=== PATIENT | female | born 1985 | race Caucasian/White ===

== ENCOUNTER 2018-07-31 21:27 | Inpatient (IN) | payer OTHER ==
[~2018-07-31] VITALS: Ht 162.6 cm; Wt 90.7 kg
[2018-07-31 21:42] VITALS: BP 140/90
--- NOTE | 2018-07-31 21:42 | NUR ---
TO BED # 3 AMBULATORY, REPORT GIVEN TO LISBETH CAMARENA
--- NOTE | 2018-07-31 21:50 | NUR ---
PT CAME IN WITH C/O POTENTIAL/NEAR DROWNING X 3 DAYS AGO. PT WAS IN A RACE AND HAD TO SWIM. SHE WENT UNCONCIOUS TO FIND HER SELF WHEN SHE WOKE UP IN THE AMBULANCE. PT WAS ADMITTED FOR OBSERVATION AT A HOSPITAL. PT O2 SAT. IS BETWEEN 88 AND 95 PERCENT ON RA. NO PAIN AT THIS TIME. A/O X 4. PT HAS SOME SLIGHT WHEEZING TO RIGHT LUNG. NO COUGHING AT THIS TIME. KNA. NO PRIOR MEDICAL HX.SKIN IS PINK/WARM/DRY;; PATIENT STATES PAIN OF 0/10 AT THIS TIME; VSS; PATIENT POSITIONED FOR COMFORT; HOB ELEVATED; BEDRAILS UP X2; BED DOWN. ER MD MADE AWARE OF PT STATUS.
[2018-07-31 22:40] LABS: BASOPHILS % (AUTO) 0.2 % (0.0-2.0); EOSINOPHILS % (AUTO) 0.1 % (0.0-4.0); HEMOGLOBIN 14.6 g/dL (12.0-16.0); LYMPHOCYTES # (AUTO) 0.7 K/uL (2.5-16.5); MEAN CORPUSCULAR HEMOGLOBIN 31 pg (27-31); MEAN CORPUSCULAR HGB CONC 35 g/dL (33-37); MEAN CORPUSCULAR VOLUME 88.4 fL (80-94); MONOCYTES # (AUTO) 0.6 K/uL (0.8-1.0); MONOCYTES % (AUTO) 4.2 % (1.7-9.3); NEUTROPHILS # (AUTO) 12.2 K/uL (1.8-7.7); NEUTROPHILS % (AUTO) 90.3 % (42.2-75.2); PLATELET COUNT (AUTO) 279 K/uL (140-450); RED BLOOD CELL COUNT(AUTO) 4.75 MIL/uL (4.20-5.40); RED CELL DISTRIBUTION WIDTH 12.6 % (11.6-13.7); WHITE BLOOD COUNT (AUTO) 13.5 K/uL (4.8-10.8)
[2018-07-31 22:54] LABS: LYMPHOCYTES % (AUTO) 5.2 % (20.5-51.1)
[2018-07-31 23:08] LABS: ALBUMIN 2.9 g/dL (3.4-5.0); ANION GAP 18.1 (8-16); CARBON DIOXIDE 16.8 mmol/L (21-32); POTASSIUM 3.9 mmol/L (3.5-5.1); TOTAL BILIRUBIN 0.5 mg/dL (0.0-1.0)
[2018-07-31 23:10] LABS: CREATININE 4.8 mg/dL (0.6-1.3)
[2018-07-31] MEDS ORDERED: NACL 0.9% 1,000 ML IV ONE (23:10)
--- NOTE | 2018-07-31 23:12 | NUR ---
PT RESTING IN BED, COMFORT MEASURES OFFERED. PT TOLERATED WELL.
[2018-08-01] MEDS ORDERED: ONDANSETRON 4 MG/2 ML VIAL IVP PRN (00:25)
[2018-08-01] MEDS ORDERED: ACETAMINOPHEN 325 MG TAB PO PRN (00:25)
[2018-08-01] MEDS ORDERED: ALBUTEROL 0.083% 2.5 MG/3 ML NEBU INH PRN (00:25)
--- NOTE | 2018-08-01 00:32 | NUR ---
pt resting in bed, vitals stable. wating for transfer to the floor
--- NOTE | 2018-08-01 00:52 | NUR ---
Pt report given to jessica richey. Transfer of care at this time.vitals stable
--- NOTE | 2018-08-01 00:52 | NUR ---
Patient will be admitted to care of dr. silverman. Admited to telemetry. Will go to room 105 B. Belongings list completed. Report to AILEEN CAMARENA. VITALS STABLE.
[2018-08-01 01:00] VITALS: BP 149/103
--- NOTE | 2018-08-01 01:00 | NUR ---
RECEIVED PT FROM ER NURSE JONATHAN. ARRIVED VIA GURNEY, PT AMBULATED TO BED. AOX4, ON 2L/NC - O2SAT 92%. RIGHT HAND #20G. SKIN IS INTACT AND NORMAL FOR ETHNICITY. ORIENTED PT TO BEDROOM, RESTROOM, BED, AND CALL LIGHT. DISCUSSED PLAN OF CARE AND PT VERBALIZED UNDERSTANDING. NO S/S OF RESPIRATORY DISTRESS OR DISCOMFORT NOTED AT THIS TIME. MRSA SWAB COLLECTED. VITAL SIGNS TAKEN AND ELEVATED BP NOTED WELL TACHYCARDIC. PT TOLERATED WELL AND IN NO SIGNS OF DISTRESS. PT ALSO HAS A COUGH- INTERMITTENT. BED IN LOWEST POSITION, BED BREAKS ON, BOTH SIDE RAILS UP. BED SIDE TABLE AND CALL LIGHT ARE WITHIN REACH.
[2018-08-01] MEDS: NACL 0.9% 1,000 ML IV SCH ×2 (01:52→14:01)
--- NOTE | 2018-08-01 01:52 | NUR ---
IVF HUNG AND TOLERATING WELL. PT STATED THAT SHE BECAME NAUSEOUS WITH IVF IN ER AND TO GIVE EMESIS BAGS- GIVEN FOR COMFORT. REMINDED PT THAT THERE ARE ANTIEMETICS AVAILABLE TO HER AND TO LET ME KNOW IF SHE WOULD LIKE TO BE MEDICATED. NO S/S OF RESPIRATORY DISTRESS OR DISCOMFORT NOTED AT THIS TIME. WILL CONTINUE TO MONITOR.
[2018-08-01 04:00] VITALS: BP 120/78
--- NOTE | 2018-08-01 04:00 | NUR ---
VITAL SIGNS TAKEN AND TOLERATED WELL. NO S/S OF RESPIRATORY DISTRESS OR DISCOMFORT NOTED AT THIS TIME. WILL CONTINUE TO MONITOR.
--- NOTE | 2018-08-01 06:00 | NUR ---
PT CONTINUES TO SLEEP. NO S/S OF RESPIRATORY DISTRESS OR DISCOMFORT NOTED AT THIS TIME. WILL CONTINUE TO MONITOR.
--- NOTE | 2018-08-01 07:24 | NUR ---
ENDORSED PT CARE TO DAY SHIFT NURSE SITAL-RN FOR CONTINUITY OF CARE.
[2018-08-01 08:00] VITALS: BP 128/86
[2018-08-01 08:08] LABS: BASOPHILS % (AUTO) 0.1 % (0.0-2.0); HEMATOCRIT 40.5 % (36-48); HEMOGLOBIN 13.8 g/dL (12.0-16.0); LYMPHOCYTES # (AUTO) 0.8 K/uL (2.5-16.5); LYMPHOCYTES % (AUTO) 6.8 % (20.5-51.1); MEAN CORPUSCULAR HEMOGLOBIN 31 pg (27-31); MEAN CORPUSCULAR HGB CONC 34 g/dL (33-37); MONOCYTES # (AUTO) 0.8 K/uL (0.8-1.0); MONOCYTES % (AUTO) 6.6 % (1.7-9.3); NEUTROPHILS % (AUTO) 86.5 % (42.2-75.2); PLATELET COUNT (AUTO) 280 K/uL (140-450); RED CELL DISTRIBUTION WIDTH 12.8 % (11.6-13.7); WHITE BLOOD COUNT (AUTO) 11.6 K/uL (4.8-10.8)
--- NOTE | 2018-08-01 08:15 | NUR ---
RADIOLOGY CALLED , PT DUE FOR TWO SIDE X-RAY. INOFRMED PT. KEPT HER ON HEPLOCK, PT STATES SHE FEELS COMFORTABLE FOR BREATHING RT NOW. NO DISTRESS NOTED. WILL CONTINUE TO MONITOR PT.
--- NOTE | 2018-08-01 08:50 | NUR ---
PT BACK FORM X-RAY. SITTING ON HER BED. NO SIGN OF DISTRESS. WILL CONTINUE TO MONITOR PT.
--- NOTE | 2018-08-01 09:02 | NUR ---
PATIENT HAS BEEN SCREENED AND CATEGORIZED MODERATE NUTRITION RISK. PATIENT WILL BE SEEN WITHIN 3-5 DAYS OF ADMISSION. 08/03/18 08/05/[address]
--- NOTE | 2018-08-01 09:10 | NUR ---
CALLED PTS PCP AT [facility] FOR RECENT LAB VALUES PER DR BRNUO. NO CAMILA RECEIVED BY OFFICE. WILL TRY AGAIN LATER.
[2018-08-01] MEDS: SODIUM BICARBONATE 650 MG TAB PO SCH ×2 (09:16→21:06)
[2018-08-01 09:39] LABS: MAGNESIUM 2.4 mg/dL (1.8-2.4); PHOSPHORUS 4.2 mg/dL (2.5-4.9)
--- NOTE | 2018-08-01 10:45 | NUR ---
PT PCP OFFICE [facility] [phone] CALLED FOR RECEIVING RECENT LAB ORDER PER MD ORDER. FAX NUMBER [phone] GIVEN TO FAX THE LAB REPORTS. WILL WAIT FOR THE FAX TO BE RECEIVED.
[2018-08-01 12:00] VITALS: BP 139/95
--- NOTE | 2018-08-01 12:00 | NUR ---
CHECKED ON PT. NORMAL VS NOTED. PT DENIES ANY RESPIRATORY DISTRESS. PT STILL ON 3LPM O2 VIA NC, SATURATION AT 94. PT STATES TO HAVE BOWEL MOVEMENT, SOFT . NO SIGN OF DISTRESS. DENIES PAIN, AUSCULTATED LUNGS , HAS SOME WHEEZING ON HER RT SIDE LUNG.PTS PCP OFFICE CALLED AGAIN, ASKED ABOUT THE RECENT LAB VALUES, STATES HAS NO RECENT LAB VALUES. HAS ONLY OF MAY 2017. INFORMED PT. WILL CONTINUE TO MONITOR PT.
[2018-08-01 12:48] LABS: BILIRUBIN,URINE NEGATIVE (NEGATIVE); BLOOD, URINE 1+ (NEGATIVE); COLOR,URINE YELLOW (YELLOW); LEUKOCYTE ESTERASE ,URINE 1+ (NEGATIVE); NITRITE, URINE NEGATIVE (NEGATIVE); PH,URINE 5.5 (5.0-9.0); UGLUCOSE NEGATIVE (NEGATIVE)
[2018-08-01 13:00] LABS: RBC,URINE 0-5 (RARE) /HPF (0-5)
[2018-08-01 13:02] LABS: APPEARANCE,URINE SLIGHTLY HAZY (CLEAR)
--- NOTE | 2018-08-01 14:00 | NUR ---
CHECKED ON PT. SITTING ON HER BED. ADMINISTERED IVF TO PT. OFFERED ICE WATER. CALL LIGHT LUCIAN GONZALEZ. NO SIGN OF DISTRESS. WILL CONTINUE TO MONITOR PT.
[2018-08-01 16:00] VITALS: BP 136/105
[2018-08-01] MEDS ORDERED: ALBUTEROL SULFATE/IPRATROPIU 3 ML SOL IH PRN (16:10)
--- NOTE | 2018-08-01 18:30 | NUR ---
CHECKED ON PT. SITTING ON HER BED. NO SIGN OF DISTRESS.STATES IS COMFORTABLE FOR BREATHING. WILL CONTINUE TO MONITOR PT.
--- NOTE | 2018-08-01 19:10 | NUR ---
RECEIVED REPORT FROM JODI RN AT BEDSIDE FOR CONTINUITY OF CARE, PT IN STABLE CONDITION.
--- NOTE | 2018-08-01 19:10 | NUR ---
ENDORSED PT TO PM NURSE AT THE BEDSIDE. PT SITTING ON HER BED. PT IN STABLE CONDITION.
[2018-08-01 20:00] VITALS: BP 151/94
[2018-08-01] MEDS: PIPER/TAZO 2.25GM/D5W PREMIX 50 ML IV SCH (21:08)
[2018-08-01] MEDS: ALBUTEROL SULFATE/IPRATROPIU 3 ML SOL IH SCH (21:10)
[2018-08-01 21:50] LABS: ANION GAP 20.1 (8-16); CARBON DIOXIDE 14.7 mmol/L (21-32); POTASSIUM 3.8 mmol/L (3.5-5.1)
[2018-08-01 21:56] LABS: CREATININE 4.4 mg/dL (0.6-1.3)
--- NOTE | 2018-08-01 21:57 | NUR ---
SERGE FROM LAB CALLED TO REPORT CRITICAL CREATININE LEVEL OF 4.4, WHICH IS TRENDING DOWN FROM 4.8. WILL ALERT PRIMARY MD.
--- NOTE | 2018-08-01 22:00 | NUR ---
PT IN BED NO S/S OF PAIN OR DISTRESS, PT LUNG SOUNDS DIMINISHED AT BASE OF LEFT LUNG. PT ASLO HAS PERIODS OF DRY COUGH. PT GETTING NEBULIZER TREATMENT Q 6HRS. PT IS ALSO ON 3L OF O2 VIA N/C. V/S FOLLOWS T 99.0 P 96 B/P 151/94 R 20 02 94 WITH 3 L OF O2. PT HAS NO C/O OF PAIN OR SOB.
--- NOTE | 2018-08-01 22:30 | NUR ---
PT SLEEPING SOUNDLY NO S/S OF SOB, IV FLUIDS RUNNING N/S AT 75MLS/HR. BED LOW SIDE RAILS UP AND CALL CRUZ IN REACH.
[2018-08-01 22:33] LABS: CKMB RELATIVE INDEX 0.2 (0.0-2.5)
[2018-08-02] VITALS: BP 138/89
--- NOTE | 2018-08-02 01:00 | NUR ---
PT WOKE UP AND C/O OF PANIC ATTACK. NO SOB NOTED PT HAS N/C RUNNING 3 L. PT SAID SHE IS OK BUT WAS ALSO NOTED WITH DRY COUGH. PT DUE FOR RESPIRATORY TREATMENT WHICH WAS PROVIDED.
--- NOTE | 2018-08-02 01:30 | NUR ---
POSITIVE EFFECT OF NEB TREATMENT. PT IS BACK TO SLEEP WITH NO S/S OF DISTRESS NOTED. O2 RUNNING AT 3 LITERS. BED LOW SIDE RAILS UP AND CALL CRUZ IN REACH.
[2018-08-02] MEDS: ALBUTEROL SULFATE/IPRATROPIU 3 ML SOL IH SCH ×2 (01:33→07:36)
[2018-08-02] MEDS: NACL 0.9% 1,000 ML IV SCH (03:18)
--- NOTE | 2018-08-02 03:30 | NUR ---
PT SLEEPING NO S/S OF PAIN OR DISTRESS NOTED BED LOW AND CALL CRUZ IN REACH.
[2018-08-02 04:00] VITALS: BP 144/90
[2018-08-02] MEDS: PIPER/TAZO 2.25GM/D5W PREMIX 50 ML IV SCH (05:00)
--- NOTE | 2018-08-02 06:00 | NUR ---
LILLIANA LARKIN NO ADVERSE EFECTS NOTED . V/S FOLLOWS T 98.5 P 90 R 20 B/P 144/90. PT DENIES PAIN.
[2018-08-02 06:29] LABS: BASOPHILS % (AUTO) 0.1 % (0.0-2.0); EOSINOPHILS % (AUTO) 0.4 % (0.0-4.0); HEMATOCRIT 38.1 % (36-48); HEMOGLOBIN 12.9 g/dL (12.0-16.0); LYMPHOCYTES # (AUTO) 1.4 K/uL (2.5-16.5); MEAN CORPUSCULAR HEMOGLOBIN 31 pg (27-31); MEAN CORPUSCULAR HGB CONC 34 g/dL (33-37); MEAN CORPUSCULAR VOLUME 90.7 fL (80-94); MONOCYTES % (AUTO) 10.8 % (1.7-9.3); NEUTROPHILS # (AUTO) 7.2 K/uL (1.8-7.7); NEUTROPHILS % (AUTO) 74.7 % (42.2-75.2); PLATELET COUNT (AUTO) 262 K/uL (140-450); RED CELL DISTRIBUTION WIDTH 12.8 % (11.6-13.7); WHITE BLOOD COUNT (AUTO) 9.6 K/uL (4.8-10.8)
[2018-08-02 06:51] LABS: ALBUMIN 2.4 g/dL (3.4-5.0); ANION GAP 14.2 (8-16); ASPARTATE AMINOTRANSFERASE 26 U/L (15-37); CARBON DIOXIDE 20.5 mmol/L (21-32); CHLORIDE 108 mmol/L (98-107); CREATININE 3.1 mg/dL (0.6-1.3); GFR ARICAN-AMERICAN 23 mL/min (>90); GLUCOSE 104 mg/dL (74-106); PHOSPHORUS 3.6 mg/dL (2.5-4.9); POTASSIUM 3.7 mmol/L (3.5-5.1); SODIUM SERUM 139 mmol/L (136-145); TOTAL BILIRUBIN 0.3 mg/dL (0.0-1.0); UREA NITROGEN, BLOOD 28 mg/dL (7-18)
--- NOTE | 2018-08-02 07:15 | NUR ---
ENDORSED CARE TO RN DAYSHIFT NURSE FOR CONTINUITY OF CARE.
--- NOTE | 2018-08-02 07:36 | NUR ---
AWAKE AND ALERT RESPONSIVE TO TUFT MACHINE OPERATOR VERBAL COMMANDS OFF SUPPLEMENTAL OXYGEN AT THIS TIME C/O NASAL DRYNESS PATIENT STATES "STUFFINESS" POST HHN THERAPY ADDED HUMIDIFIER
[2018-08-02] MEDS ORDERED: SODIUM BICARBONATE 8.4% 100 MEQ in NACL 0.45% 1,000 ML IV SCH (07:40)
[2018-08-02 08:00] VITALS: BP 125/89
[2018-08-02] MEDS ORDERED: SODIUM BICARBONATE 650 MG TAB PO SCH (09:00)
[2018-08-02 12:00] VITALS: BP 150/96
[2018-08-02] MEDS ORDERED: LEVO500T98 PO (12:01)
[2018-08-02 12:06] LABS: APPEARANCE,URINE SLIGHTLY HAZY (CLEAR); COLOR,URINE YELLOW (YELLOW)
[2018-08-02 12:07] LABS: BILIRUBIN,URINE NEGATIVE (NEGATIVE); BLOOD, URINE 3+ (NEGATIVE); LEUKOCYTE ESTERASE ,URINE NEGATIVE (NEGATIVE); NITRITE, URINE NEGATIVE (NEGATIVE); PH,URINE 5.5 (5.0-9.0); UGLUCOSE NEGATIVE (NEGATIVE)
[2018-08-02 12:14] LABS: RBC,URINE 3-10 (FEW) /HPF (0-5)
[2018-08-02 12:51] VITALS: BP 150/90
--- NOTE | 2018-08-02 13:30 | NUR ---
Patient received discharge instructions regarding meds-rx, activity, diet, and follow up with PMD, and with spline rolling machine job setter visit in 1 -2 weeks. Patient acknowledges information received, IV discontinued, and Patient discharged to home. Quentin Farley RN
--- NOTE | 2018-08-02 14:15 | NUR ---
LATE ENTRY FOR 08/01/18 CM NOTE INITIAL REVIEW FAXED TO [facility] [phone] [place] # [phone].
--- NOTE | 2018-08-02 14:17 | NUR ---
CM NOTE CONCURRENT REVIEW FAXED TO [facility] [phone] [place] PH# [phone]. ORDER FOR HIGH RISK CLINIC FAXED TO [facility] [phone]. [facility] KERI [place] AWARE PH# [phone].
== END 2018-08-02 13:30 | disposition home or self-care (01) | DRG 469 ==
LOC: MED 21:27 → MTU 08-01 00:26
PROVIDERS: ADMIT Hospitalist; ATTEND Hospitalist
DX: N17.0 Acute kidney failure with tubular necrosis (principal); J96.01 Acute respiratory failure with hypoxia; J69.0 Pneumonitis due to inhalation of food and vomit; E87.2 Acidosis; E87.1 Hypo-osmolality and hyponatremia; I10 Essential (primary) hypertension; N39.0 Urinary tract infection, site not specified
CPT/HCPCS: 36415; 36600; 71045; 71046; 76770; 80048; 80053; 81001; 82550; 82553; 82803; 83605; 83735; 83880; 84100; 84300; 85025; 87040; 87081; 87086; 87205; 94640; 96360; 99285; J2543; J3490; J7030; J7613; J7620; Q0092